=== PATIENT | female | born 1985 | race African-American/Black ===

== ENCOUNTER 2020-06-13 23:16 | Emergency (ER) | payer MEDICAID ==
[~2020-06-13] VITALS: Ht 157.5 cm; Wt 111.0 kg
[2020-06-14 00:43] VITALS: BP 139/99
[2020-06-14] MEDS ORDERED: IBUPROFEN 600MG TABLET PO ONE (00:45)
[2020-06-14] MEDS ORDERED: MECLIZINE 25MG TABLET PO ONE (00:45)
[2020-06-14 01:10] LABS: BASOPHILS % 0.9 % (0.0-2.0); EOSINOPHILS % 1.9 % (0.0-5.0); HEMATOCRIT. 38.7 % (36.0-48.0); LYMPHOCYTES % 37.1 % (20.0-50.0); MEAN CORPUSCULAR HEMOGLOBIN 28.2 pg (28.0-32.0); MEAN CORPUSCULAR VOLUME 83.7 fL (81.0-99.0); MEAN PLATELET VOLUME 8.6 fl (7.4-10.4); MONOCYTES % 4.9 % (2.0-8.0); NEUTROPHILS % 55.2 % (40.0-76.0); PLATELET 230 x1000/uL (130-400); RED BLOOD CELL COUNT 4.62 mill/uL (4.2-5.4); RED CELL DISTRIBUTION WIDTH 15.4 % (11.6-14.6)
[2020-06-14 01:15] LABS: CHLORIDE 106 mEq/L (98-107)
[2020-06-14 01:21] LABS: ETHANOL BLOOD < 10 mg/dL
[2020-06-14 01:45] LABS: METHADONE URINE SCREEN NEGATIVE (NEGATIVE)
[2020-06-14 01:46] LABS: *AMPHETAMINES SCREEN URINE NEGATIVE (NEGATIVE); *BARBITURATES SCREEN URINE NEGATIVE (NEGATIVE); *BENZODIAZEPINES SCREEN URINE NEGATIVE (NEGATIVE); OPIATES URINE SCREEN NEGATIVE (NEGATIVE); PHENCYCLIDINE URINE SCREEN NEGATIVE (NEGATIVE)
[2020-06-14 01:47] LABS: *COCAINE SCREEN URINE NEGATIVE (NEGATIVE)
[2020-06-14 01:59] LABS: CANNABINOID URINE SCREEN PRESUMTIVE POSITIVE (NEGATIVE)
== END 2020-06-14 03:12 | disposition home or self-care (01) ==
LOC: ER 23:16
DX: R42 Dizziness and giddiness (principal); E11.9 Type 2 diabetes mellitus without complications; F12.10 Cannabis abuse, uncomplicated
CPT/HCPCS: 36415; 70450; 71045; 80053; 80305; 80320; 81025; 82962; 83880; 84484; 85025; 93005; 99285; J8597; G0480

== ENCOUNTER 2024-05-17 23:19 | Emergency (ER) | payer MEDICAID ==
[~2024-05-17] VITALS: Ht 157.5 cm; Wt 91.0 kg
[2024-05-17 23:31] VITALS: O2SAT 100
[2024-05-17 23:42] VITALS: TEMP 98.8; O2SAT 100
[2024-05-18] MEDS ORDERED: ACETAMINOPHEN 1000MG/100ML 100 ML IV ONE (00:15)
[2024-05-18 00:38] VITALS: BP 135/89; PULSE 64
[2024-05-18] MEDS: SODIUM CHLORIDE 0.9% 1,000 ML IV ONE (01:07)
== END 2024-05-18 04:12 | disposition left against medical advice (07) ==
LOC: ER 23:19
DX: R55 Syncope and collapse (principal); F12.90 Cannabis use, unspecified, uncomplicated; E11.9 Type 2 diabetes mellitus without complications; Z53.29 Procedure and treatment not carried out because of patient's decision for other reasons
CPT/HCPCS: 99285; 82962; 93005; 96360; 71045; J7030; A4663; A4606; J0131

== ENCOUNTER 2025-05-12 09:51 | Emergency (ER) | payer MEDICAID ==
[~2025-05-12 09:51] MED LIST: BRIV50TA PO; CALC-775 MT; FOLI0.4T6 MT; GABA-1180 MT; MAGN400C MT; VITA1CAP MT
[2025-05-12 10:55] LABS: BASOPHILS % 0.8 % (0.0-2.0); EOSINOPHILS % 1.8 % (0.0-5.0); HEMATOCRIT. 30.1 % (36.0-48.0); HEMOGLOBIN. 9.5 g/dL (12.0-16.0); LYMPHOCYTES % 26.1 % (20.0-50.0); MEAN PLATELET VOLUME 7.7 fl (7.4-10.4); MONOCYTES % 5.4 % (2.0-8.0); NEUTROPHILS % 65.9 % (40.0-76.0); PLATELET 310 x1000/uL (130-400); RED BLOOD CELL COUNT 3.80 mill/uL (4.2-5.4); RED CELL DISTRIBUTION WIDTH 15.7 % (11.6-14.6)
[2025-05-12 11:10] LABS: CREATININE 1.2 mg/dL (0.6-1.0); UREA NITROGEN BLOOD 11 mg/dL (9-23)
[2025-05-12 11:11] LABS: TROPONIN I HIGH SENSITIVITY < 4 ng/L (3.0-34)
[2025-05-12 13:12] LABS: TROPONIN I HIGH SENSITIVITY < 4 ng/L (3.0-34)
[2025-05-12] MEDS: MORPHINE SULFATE 4 MG/ML INJ (FOR IV/IM USE) IV ONE (13:27)
[2025-05-12 15:11] VITALS: BP 123/78; PULSE 85; RESP 20; TEMP 36.8; O2SAT 100
== END 2025-05-12 15:32 | disposition short-term general hospital (02) ==
LOC: ER 10:41
DX: R07.2 Precordial pain (principal); R20.0 Anesthesia of skin
CPT/HCPCS: 36415; 71045; 80048; 84484; 85025; 93005; 99285; J2270